=== PATIENT | male | born 1985 ===

== ENCOUNTER 2019-07-10 08:36 | Inpatient (IN) | payer OTHER ==
[2019-07-10] VITALS (17 sets, daily range): BP systolic 103–127; BP diastolic 54–81
[~2019-07-10] VITALS: Ht 190.5 cm; Wt 99.8 kg
[~2019-07-10 08:36] MED LIST: AMOXICILLIN500 MG ORAL
[2019-07-10] MEDS ORDERED: fentaNYL 100 mcg/2 mL IV ONE ×4 (09:07→15:25)
[2019-07-10] MEDS ORDERED: Midazolam 2mg/2ml Inj ONE (09:08)
[2019-07-10] MEDS ORDERED: TYLENOL PO (09:18)
[2019-07-10] MEDS ORDERED: EPINEPHrine 1mg/1ml Amp ONE (09:58)
[2019-07-10] MEDS ORDERED: Vancomycin 1gm vial IVPB ONE (09:58)
[2019-07-10] MEDS ORDERED: Bupivacaine 0.5% Inj 30 ml vial INJ ONE (09:59)
[2019-07-10] MEDS ORDERED: Heparin 5000 units/ml inj ONE (09:59)
[2019-07-10] MEDS ORDERED: Bacitracin 50000 Units Vial ONE (09:59)
--- NOTE | 2019-07-10 10:13 | Pre-Procedure Note/Attestation ---
Pre-Procedure Note/Attestation Complete Prior to Procedure Planned Procedure: bilateral Procedure Narrative: anterior and porterior decompression fusion and instrumation because of herniated disks at L4/5 and L5/S1 Attestation I attest that I discussed the nature of the procedure; its benefits; risks and complications; and alternatives (and the risks and benefits of such alternatives ), prior to the procedure, with the patient (or the patient's legal dental detail representative). I attest that, if there was a reasonable possibility of needing a blood transfusion, the patient (or the patient's legal dental detail representative) was given the [facility] standardized written summary, pursuant to the Haroldo Tami Blood Safety Act ([place] Health and Safety Code # 1645, as amended). I attest that I re-evaluated the patient just prior to the surgery and that there has been no change in the patient's H&P, except as documented below: Jeanmarie Harry MD Jul 10, 2019 10:13
[2019-07-10] MEDS ORDERED: Naloxone 0.4mg/ml Inj IVP PRN (10:15)
[2019-07-10] MEDS ORDERED: Metoclopramide 10mg/2ml Inj IVP PRN ×3 (10:15→16:30)
[2019-07-10] MEDS ORDERED: Rocuronium Bromide 50mg/5ml Inj IV ONE (10:19)
[2019-07-10] MEDS ORDERED: Succinylcholine 20mg/ml 10ml vial ONE (10:19)
[2019-07-10] MEDS ORDERED: NS Irrig 1000ml IRRIG ONE ×2 (10:29→10:40)
[2019-07-10] MEDS ORDERED: Propofol 1,000mg/ 100ml btl IV ONE (10:30)
[2019-07-10] MEDS ORDERED: Ketorolac 30mg Inj ONE (10:30)
[2019-07-10] MEDS ORDERED: Sterile Water Irrig 1000ml IRRIG ONE (10:30)
[2019-07-10] MEDS ORDERED: LR 1000ml ONE (10:30)
[2019-07-10] MEDS ORDERED: NS Irrig 1000ml ONE ×2 (10:30)
[2019-07-10] MEDS ORDERED: Thrombin 5000 units TOPIC ONE (10:52)
[2019-07-10] MEDS ORDERED: Gelfoam Size TOPIC ONE (10:52)
[2019-07-10] MEDS ORDERED: Acetaminophen (Non formulary) 100 ML IV ONE (11:30)
--- NOTE | 2019-07-10 11:32 | Anethesia Preoperative Eval ---
Anesthesia Pre-op PMH/ROS General Date of Evaluation: Jul 10, 2019 Time of Evaluation: 10:14 Anesthesiologist: Yulissa ASA Score: ASA 2 Mallampati Score Class I : Soft palate, uvula, fauces, pillars visible Class II: Soft palate, uvula, fauces visible Class III: Soft palate, base of uvula visible Class IV: Only hard plate visible Mallampati Classification: Class II Surgeon: Piero Diagnosis: Lumbar radiculopathuy Surgical Procedure: Anterior and posterior Lumbar discectomy fusion Anesthesia History: none Social History: drug use - marijuana Family History: no anesthesia problems Allergies: Coded Allergies: No Known Allergies (Unverified , 07/10/19) Medications: see eMAR Patient NPO?: Yes NPO Date: Jul 09, 2019 NPO Time: 2129 Past Medical History Cardiovascular: Denies: HTN, CAD, [place], valve dz, arrhythmia, other Pulmonary: Denies: asthma, COPD, PAULA, other Gastrointestinal/Genitourinary: Reports: GERD - mild; Denies: CRI, ESRD, other Neurologic/Psychiatric: Reports: other - chronic pain; Denies: dementia, CVA, depression/anxiety, TIA Endocrine: Denies: DM, hypothyroidism, steroids, other HEENT: Denies: cataract (L), cataract (R), glaucoma, PO[place]AY IRA (L), PO[place]AY IRA (R), other Hematology/Immune: Denies: anemia, DVT, bleeding disorder, other Musculoskeletal/Integumentary: Denies: OA, RA, DJD, DDD, edema, other PMH Narrative: as above PSxH Narrative: None Anesthesia Pre-op Phys. Exam Physician Exam Last Vital Signs Date Time Temp Pulse Resp B/P (MAP) Pulse Ox O2 Delivery O2 Flow Rate FiO2 07/10/19 09:13 Room Air 07/10/19 09:08 98.1 73 18 125/78 (94) 97 Constitutional: NAD Neurologic: CN 2-12 intact Cardiovascular: RRR, no M/R/G Respiratory: CTA Gastrointestinal: S/NT/ND Airway Exam Mallampati Score: Class II MO: full Neck: flexible ROM: full Teeth: intact Dentures: no upper, no lower Anesthesia Pre-op A/P Labs see chart Studies Pre-op Studies: EKG - NSR Risk Assessment & Plan Assessment: ASA 2 Plan: GA with Ett, supine and prone position, neuromonitoring Status Change Before Surgery: No Pre-Antibiotics Drug: Ancef 2gr, Vancomycin 1gr Given Within 1 Hr of Incision: Yes Time Given: 11:18 Rivera Duenas MD Jul 10, 2019 11:32
[2019-07-10] MEDS ORDERED: Propofol 200mg/20ml IV ONE (12:19)
[2019-07-10] MEDS ORDERED: Ketamine 500mg Inj ONE (13:13)
[2019-07-10] MEDS ORDERED: Lidocaine 1% MPF 10mg/ml 5ml ONE (13:32)
[2019-07-10] MEDS ORDERED: Lidocaine 1% Plain 30 ml INJ ONE (13:59)
[2019-07-10] MEDS ORDERED: Lidocaine 1% 10mg/ml/Epi 0.005mg/ml 30ml vial INJ ONE (14:36)
--- NOTE | 2019-07-10 16:19 | Immediate Post-Op Evaluation ---
Immediate Post-Op Evalulation Immediate Post-Op Evalulation Procedure: ALIF L4-5, L5-S1 Date of Evaluation: Jul 10, 2019 Time of Evaluation: 16:29 IV Fluids: 2000 LR Blood Products: 0 Estimated Blood Loss: 150 Urinary Output: 250 Blood Pressure Systolic: 127 Blood Pressure Diastolic: 85 Pulse Rate: 93 Respiratory Rate: 16 O2 Sat by Pulse Oximetry: 100 Temperature (Fahrenheit): 98.6 Pain Score (1-10): 3 Nausea: No Vomiting: No Complications 0 Patient Status: awake, reacts, patent, extubated, none Hydration Status: adequate Dru Grams Ancef IV Given Within 1 Hr of Incision: Yes Time Given: 10:37 Driss Huston MD Jul 10, 2019 16:19
[2019-07-10] MEDS ORDERED: LR 1000ml 1,000 ML IVLG SCH ×2 (16:21)
[2019-07-10] MEDS: fentaNYL 100 mcg/2 mL IV PRN ×2 (16:27→17:09)
[2019-07-10] MEDS ORDERED: LORazepam Inj 2mg/ml 1ml IV PRN ×2 (16:30)
[2019-07-10] MEDS ORDERED: DiphenhydrAMINE 50mg/ml Inj IVP PRN ×2 (16:30)
[2019-07-10] MEDS ORDERED: Ketorolac 30mg Inj IV PRN ×4 (16:30)
[2019-07-10] MEDS ORDERED: HYDROcodone/Acetamin 5/325 tab ORAL PRN ×2 (16:30)
[2019-07-10] MEDS ORDERED: Hydromorphone 0.5mg/0.5ml inj IVP PRN (16:30)
[2019-07-10] MEDS ORDERED: Midazolam 2mg/2ml Inj IVP PRN ×2 (16:30)
[2019-07-10] MEDS ORDERED: fentaNYL 100 mcg/2 mL IV PRN (16:30)
[2019-07-10] MEDS ORDERED: Labetalol 5mg/ml 20ml vial IV PRN ×2 (16:30)
[2019-07-10] MEDS ORDERED: HYDROcodone/Acetamin 7.5/325 tab ORAL PRN ×2 (16:30)
[2019-07-10] MEDS ORDERED: oxyCODONE HCL/Acetaminophen 5/325mg ORAL PRN ×2 (16:30)
[2019-07-10] MEDS ORDERED: Meperidine 50mg/ml Inj(FOR RIGORS ONLY) IVP PRN ×2 (16:30)
[2019-07-10] MEDS ORDERED: Atropine Sulfate 0.4mg/ml inj IVP PRN ×2 (16:30)
[2019-07-10] MEDS: Hydromorphone 0.5mg/0.5ml inj IVP PRN ×2 (16:35→17:39)
--- NOTE | 2019-07-10 16:41 | Diagnostic Imaging Report ---
Indication: Intraoperative imaging COMPARISON: None FINDINGS: 8 fluoroscopic images were obtained intraoperatively. Multiple fluoroscopic images demonstrating anterior discectomy and fusion at L4-5 and L5-S1 with the plate and several screws. Subsequent placement of a posterior fusion apparatus L4-S1 noted with fusion rods and pedicle screws. IMPRESSION: Intraoperative imaging as described above
--- NOTE | 2019-07-10 18:12 | NUR ---
NURSE NOTES: Patient arrived to unit via bed accompanied by RN. Patient is awake and oriented, patient is moaning, states his pain is "12/10." Posterior surgical dressing dry with one small stain noted, anterior dressing clean, dry, intact. Left hand IV intact, patent. SCD's in place. Per report from Maggy RN mcduffie was removed approximately 1800, patient has not voided yet, provided patient with urinal. Patient's sister at bedside, updated on plan of care. Side rails upx3, bed low and locked, call light in reach. Will medicate per order for pain.
--- NOTE | 2019-07-10 18:30 | NUR ---
NURSE NOTES: Went to reassess patient for pain and patient is now sleeping, no requests at this time.
[2019-07-10] MEDS: Docusate 100mg cap ORAL SCH (18:52)
--- NOTE | 2019-07-10 19:30 | NUR ---
HAND-OFF: Report given to Pratima SPENCER. Endorsed pain reassessment for administered dilaudid 2mg subcut.
--- NOTE | 2019-07-10 19:35 | NUR ---
NURSE NOTES: Received report from JOHANNA Regan. Patient drowsy, easily awakened, oriented. Neuro checks done. IV in LH intact and patent. Abdominal and back dressings checked, dry, both have small stains, circled. no active bleeding. No nausea/vomiting. Bed in low position, locked, side rails up x3, SCDs on. Call light within reach. Instructed on moving in bed, log rolling, request assistance as needed. Will continue to monitor.
[2019-07-10 20:31] LABS: BASOPHILS % (AUTO) 0.6 % (0.0-2.0); EOSINOPHILS % (AUTO) 0.2 % (0.0-3.0); HEMATOCRIT 39.9 % (42.0-52.0); LYMPHOCYTES % (AUTO) 14.2 % (20.0-45.0); MEAN CORPUSCULAR VOLUME 84 FL (80-99); MONOCYTES % (AUTO) 9.7 % (1.0-10.0); NEUTROPHILS % (AUTO) 75.3 % (45.0-75.0); PLATELET COUNT 242 K/UL (150-450); RED BLOOD COUNT 4.74 M/UL (4.70-6.10); RED CELL DISTRIBUTION WIDTH 9.9 % (11.6-14.8); WHITE BLOOD COUNT 15.6 K/UL (4.8-10.8)
[2019-07-10] MEDS: D5 1/2NS w/KCl 20mEq 1,000 ML IV SCH (20:41)
[2019-07-10] MEDS: ceFAZolin sod 1 GM in D5W 55 ML IV SCH (20:41)
[2019-07-10] MEDS: Vancomycin 1 GM in D5W 275 ML IVPB SCH (23:03)
--- NOTE | 2019-07-10 23:15 | Operative Note - Dictated ---
DATE OF OPERATION: 07/10/2019 PREOPERATIVE DIAGNOSES: 1. L4-5 and L5-S1 herniated nucleus pulposus. 2. L4-5 and L5-S1 internal disc derangement. 3. L4-5 and L5-S1 annular tear. 4. L4-5 and L5-S1 instability. POSTOPERATIVE DIAGNOSES: 1. L4-5 and L5-S1 herniated nucleus pulposus. 2. L4-5 and L5-S1 internal disc derangement. 3. L4-5 and L5-S1 annular tear. 4. L4-5 and L5-S1 instability. PROCEDURES: 1. L4-5 and L5-S1 bilateral lateral fusion. 2. Posterior L4-5 and L5-S1 bilateral segmental instrumentation. 3. Use of local bone graft. 4. Use of demineralized bone matrix. 5. Intraoperative use of fluoroscopy. 6. Intraoperative use of spinal cord monitoring. SURGEON: Jeanmarie Harry M.D. ANESTHESIA: General with endotracheal intubation. DESCRIPTION OF PROCEDURE: Under general anesthesia with endotracheal intubation, the patient was placed in a prone position on the operating table. Back was prepped and draped in usual manner. The C-arm was pulled back into position and the pedicles at L4 and S1 were identified bilaterally. Following this, we placed 18-gauge spinal needles towards the pedicles at L4 bilaterally. Jamshidi needles were then used under C-arm control and directed into the pedicles. Wire was passed through the Jamshidi's bilaterally. The Jamshidi was removed. Dilators were placed over the wire. The holes were tapped 5.5 outer diameter and then 6.5 outer diameter screws, 45 mm long were inserted in a standard fashion bilaterally at L4. Following this, we tested the screws on spinal cord monitoring and they were noted to be in good position. We then went down to S1, identified the pedicles at S1. Jamshidi needles were advanced into the pedicles using the modified Eloy technique. Wires were placed through the Jamshidi's. Dilators placed over the wires. The holes were tapped and then once again, 45 mm long, 6.5 outer diameter screws were used. These screws were tested bilaterally and noted to be in good positions. The rods were then passed into the screw heads. They were 90 mm rods. Locking caps were applied and then they were appropriately torqued. The facets were debrided at L4-5 and L5-S1. Local bone was passed along the lateral gutters along with demineralized bone matrix. The wound was then closed in layers using 2-0 for fascia and 4-0 for subcuticular closure. Sterile dressings were applied. The patient was then taken to the recovery room and judged to be in stable condition and neurologically unchanged. Estimated blood loss for the posterior part of the procedure was about 5 mL. All sponge and needle counts were reported as correct. There were no complications. Jeanmarie Harry MD DR: ZAIRA JOB#: [id number] CC:
--- NOTE | 2019-07-10 23:30 | Consultation ---
DATE OF CONSULTATION: PREOPERATIVE DIAGNOSIS: Left L4-5 and L5-S1 herniated nucleus pulposus. POSTOPERATIVE DIAGNOSIS: Left L4-5 and L5-S1 herniated nucleus pulposus. PROCEDURE: 1. L4-5 and L5-S1 anterior decompression. This included a complete diskectomy at both levels with decompression of spinal canal and neurologic structures. 2. Distraction arthrodesis, L4-5 and L5-S1. 3. Insertion of a PEEK cage at L4-5 and L5-S1. 4. Anterior plating, L4-5 and L5-S1. 5. Use of local bone graft. 6. Intraoperative use of fluoroscopy. 7. Use of bone graft, small bone morphogenic protein. 8. Intraoperative use of spinal cord monitoring. SURGEON: Jeanmarie Harry M.D. CO-SURGEON: Dr. Alaniz. ANESTHESIA: General endotracheal intubation. ANESTHESIOLOGIST: . DESCRIPTION OF PROCEDURE: Under general anesthesia with endotracheal intubation, the patient was placed in the prone position on the operating table. Abdomen was then prepped and draped in the usual manner. A midline incision was made. Dr. Alaniz made a retroperitoneal approach to the lumbosacral spine and exposed the L4 disk lateral to the great vessels and the L5 disk in the crotch in great vessels. I approached L4-5 first. I incised the anulus with a knife, the endplates with an endplate separator and then removed the disk with a variety of pituitary rongeur. As disk was removed back to posterior longitudinal ligament, wedge-shaped distractors were inserted. Over the interspace, posterior longitudinal ligament was taken down. The spinal canal was decompressed. The nerves were decompressed. The cauda equina was decompressed. Local bone was harvested off the endplates and pushed out laterally. Interspace measured 15 mm high. A 15 mm 15-degree angled cage was then inserted. It was packed with demineralized bone matrix and bone morphogenic protein. A plate was fixed to the anterior part of the cage. Two screws were then placed into the inferior endplate of L4 and two in the superior endplate of L5. All screws were properly locked. Hemostasis was achieved. We then went down to L5-S1 to the crotch to the great vessels. I incised the anulus with a knife, the endplates with an endplate separator, and removed the disk with a variety of pituitary graft rongeurs. A wedge-shaped distractors were inserted to open up the interspace. The posterior longitudinal ligament was taken down. Before it was taken down, it was noted to be torn as was the same at L4-5. A 45-degree Kerrison was used to take it down the rest of the way. The canal was decompressed. The disc material was removed from the canal. The neurologic structures were decompressed. A 15-degree angled 15 mm high cage was then selected. It was packed with demineralized bone matrix and bone morphogenic protein was gently tapped into position under fluoroscopic control and direct vision. A plate was fixed to the anterior part of this cage. Two screws were then placed in the inferior endplate of L5, two in the superior endplate of S1, and all screws were appropriately locked. Hemostasis was achieved. The wound was then closed in layers. Sterile dressings were applied. The patient was then flipped to the prone position for the back of the procedure. Estimated blood loss on the front was approximately 20 mL. All sponge and needle counts were recorded as correct. Jeanmarie Harry MD DR: ZAIRA JOB#: [id number] CC:
[2019-07-11 00:45] VITALS: BP 134/74
--- NOTE | 2019-07-11 01:00 | NUR ---
NURSE NOTES: Patient was given ice chips earlier, had slight nausea, no vomiting. Attempted to void x2. Bladder scan done: [address] Loza for orders. Will continue to monitor.
--- NOTE | 2019-07-11 02:17 | NUR ---
NURSE NOTES: Contacted Dr Loza for further orders regarding no voids after reta stanley Will continue to monitor. Addendum: 07/11/19 at 0305 by Pratima Mendez RN Placed call, left message.
--- NOTE | 2019-07-11 02:55 | NUR ---
NURSE NOTES: Contacted physician regarding inability to void, left message. Patient sleeping. No distress noted.
[2019-07-11] MEDS: ceFAZolin sod 1 GM in D5W 55 ML IV SCH ×2 (03:44→12:05)
[2019-07-11 04:00] VITALS: BP 121/70
--- NOTE | 2019-07-11 04:16 | NUR ---
NURSE NOTES: Followed protocol, contacted nursing reinforced steel placing supervisor. Awaiting call back from physician.
--- NOTE | 2019-07-11 04:40 | NUR ---
NURSE NOTES: Spoke with Dr Loza, obtained order for straight cath as needed.
[2019-07-11] MEDS: D5 1/2NS w/KCl 20mEq 1,000 ML IV SCH ×4 (04:45→22:00)
--- NOTE | 2019-07-11 04:45 | NUR ---
NURSE NOTES: Patient was able to void prior to straight catheterization. Will continue to closely monitor. Sister at bedside, very supportive of care.
--- NOTE | 2019-07-11 07:35 | NUR ---
HAND-OFF: Report given to JOHANNA Regan.
[2019-07-11 07:37] LABS: ANION GAP 8 mmol/L (5-15); BLOOD UREA NITROGEN 11 mg/dL (7-18); CALCIUM 8.3 MG/DL (8.5-10.1); CARBON DIOXIDE 27 MMOL/L (21-32); CHLORIDE 103 MMOL/L (98-107); CREATININE 0.8 MG/DL (0.55-1.30); POTASSIUM 3.5 MMOL/L (3.5-5.1); SODIUM 138 MMOL/L (136-145)
[2019-07-11 08:00] VITALS: BP 103/66
--- NOTE | 2019-07-11 08:21 | NUR ---
NURSE NOTES: Received report from Pratima SPENCER. Patient is asleep but arousable to voice during rounds, no acute distress noted but patient is reporting that he is in "a lot of pain", pain medication is not due yet, educated patient that I will medicate for pain per order when due, patient is in agreement. Posterior surgical dressing dry with two small stains noted, both circled, anterior dressing clean and dry. IVF running per order. Patient is voiding without difficulty on his own now, 450mL of urine was in urinal during rounds that patient voided on his own. Patient updated on plan of care. Safety measures in place. Side rails upx3, bed low and locked, call light within reach.
--- NOTE | 2019-07-11 08:32 | NUR ---
NURSE NOTES: Went to check on patient to see if he still needs pain medication and patient is sleeping now, appears comfortable, in no distress, RR even and unlabored.
--- NOTE | 2019-07-11 09:03 | Brief Operative Note ---
Immediate Post Operative Note Operative Note Pre-op Diagnosis: L4?5 L5/S1 herniated disk with internal disk disrangment Procedure: L4/5 L5/S1 anterior and posterior decompression fusion and instramentation Post-op Diagnosis: same Post-op Diagnosis: same as pre-op Anesthesia: general Specimen: yes Complications: none Condition: stable Fluids: 2 liters Estimated Blood Loss: minimal Implant(s) used?: Yes Jeanmarie Harry MD Jul 11, 2019 09:03
--- NOTE | 2019-07-11 09:04 | Orthopedic Spine Progress Note ---
Ortho Spine - Progress Note Subjective Symptoms: c/o post-op back pain, improved - as compared to pre-op Objective Vital Signs: Last 24 Hour Vital Signs Date Time Temp Pulse Resp B/P (MAP) Pulse Ox O2 Delivery O2 Flow Rate FiO2 07/11/19 08:00 99.3 100 18 103/66 (78) 99 07/11/19 04:00 98.4 99 16 121/70 (87) 96 07/11/19 00:45 98.2 98 18 134/74 (94) 96 07/10/19 22:30 92 20 99 07/10/19 21:15 98.2 98 17 113/70 (84) 98 07/10/19 21:00 Nasal Cannula 2.0 07/10/19 20:15 98.6 98 18 113/71 (85) 98 07/10/19 19:45 97.9 93 17 110/67 (81) 99 07/10/19 19:12 88 16 113/71 (85) 100 07/10/19 18:42 81 16 110/64 (79) 99 07/10/19 18:12 97.6 88 16 107/62 (77) 100 07/10/19 18:09 97.2 07/10/19 18:00 97.2 74 16 114/66 99 Nasal Cannula 3 07/10/19 17:45 72 18 108/63 99 Nasal Cannula 3 07/10/19 17:30 86 18 117/76 99 Nasal Cannula 3 07/10/19 17:15 84 15 118/74 99 Nasal Cannula 3 07/10/19 17:00 95 24 119/81 99 Nasal Cannula 3 07/10/19 16:57 98.0 07/10/19 16:56 98.0 07/10/19 16:45 80 14 103/54 100 Nasal Cannula 3 07/10/19 16:35 93 22 123/73 100 Nasal Cannula 3 07/10/19 16:25 96 20 114/65 100 Simple Mask 6 07/10/19 16:20 96 17 116/68 100 Simple Mask 6 07/10/19 16:19 93 16 100 07/10/19 16:18 98.6 105 12 127/54 100 Simple Mask 6 07/10/19 09:13 Room Air 07/10/19 09:08 98.1 73 18 125/78 (94) 97 I&O: Intake and Output 10/28/19 10/29/19 18:59 06:59 Intake Total 2250 ml 1125 ml Output Total 470 ml 300 ml Balance 1780 ml 825 ml Intake IV Total 2250 ml 1125 ml Output Urine Total 320 ml 300 ml Estimated Blood Loss 150 ml # Voids 1 1 Drains: none Neuro Status: normal Assessment Post-op Diagnosis: same Procedure Performed: L4/5 L5/S1 anterior and posterior decompression fusion and instramentation Plan Plan: PT, continue antibiotics, discharge plan Jeanmarie Harry MD Jul 11, 2019 09:04
[2019-07-11] MEDS: Docusate 100mg cap ORAL SCH ×2 (09:08→17:51)
--- NOTE | 2019-07-11 09:18 | General Progress Note ---
Assessment/Plan Assessment/Plan: L4/5 L5/S1 herniated disk with internal disk disrangment L4/5 L5/S1 anterior and posterior decompression fusion and instramentation back pain PLAN 1. incentive spirometry 2. advance diet as able 3. PT evaluation and therapy 4. Hydration 5. Pain management 6. discharge once stable with outpatient follow up Subjective Allergies: Coded Allergies: No Known Allergies (Unverified , 07/10/19) Subjective significant pain difficulty urinating Objective Last 24 Hour Vital Signs Date Time Temp Pulse Resp B/P (MAP) Pulse Ox O2 Delivery O2 Flow Rate FiO2 07/11/19 08:00 99.3 100 18 103/66 (78) 99 07/11/19 04:00 98.4 99 16 121/70 (87) 96 07/11/19 00:45 98.2 98 18 134/74 (94) 96 07/10/19 22:30 92 20 99 07/10/19 21:15 98.2 98 17 113/70 (84) 98 07/10/19 21:00 Nasal Cannula 2.0 07/10/19 20:15 98.6 98 18 113/71 (85) 98 07/10/19 19:45 97.9 93 17 110/67 (81) 99 07/10/19 19:12 88 16 113/71 (85) 100 07/10/19 18:42 81 16 110/64 (79) 99 07/10/19 18:12 97.6 88 16 107/62 (77) 100 07/10/19 18:09 97.2 07/10/19 18:00 97.2 74 16 114/66 99 Nasal Cannula 3 07/10/19 17:45 72 18 108/63 99 Nasal Cannula 3 07/10/19 17:30 86 18 117/76 99 Nasal Cannula 3 07/10/19 17:15 84 15 118/74 99 Nasal Cannula 3 07/10/19 17:00 95 24 119/81 99 Nasal Cannula 3 07/10/19 16:57 98.0 07/10/19 16:56 98.0 07/10/19 16:45 80 14 103/54 100 Nasal Cannula 3 07/10/19 16:35 93 22 123/73 100 Nasal Cannula 3 07/10/19 16:25 96 20 114/65 100 Simple Mask 6 07/10/19 16:20 96 17 116/68 100 Simple Mask 6 07/10/19 16:19 93 16 100 07/10/19 16:18 98.6 105 12 127/54 100 Simple Mask 6 Intake and Output 07/10/19 07/11/19 18:59 06:59 Intake Total 2250 ml 1125 ml Output Total 470 ml 300 ml Balance 1780 ml 825 ml Intake IV Total 2250 ml 1125 ml Output Urine Total 320 ml 300 ml Estimated Blood Loss 150 ml # Voids 1 1 Laboratory Tests 07/10/19 19:30: White Blood Count 15.6H, Red Blood Count 4.74, Hemoglobin 14.0L, Hematocrit 39.9L, Mean Corpuscular Volume 84, Mean Corpuscular Hemoglobin 29.6, Mean Corpuscular Hemoglobin Concent 35.2, Red Cell Distribution Width 9.9L, Platelet Count 242, Mean Platelet Volume 6.7, Neutrophils (%) (Auto) 75.3H, Lymphocytes ( %) (Auto) 14.2L, Monocytes (%) (Auto) 9.7, Eosinophils (%) (Auto) 0.2, Basophils (%) (Auto) 0.6 07/11/19 05:55: Sodium Level 138, Potassium Level 3.5, Chloride Level 103, Carbon Dioxide Level 27, Anion Gap 8, Blood Urea Nitrogen 11, Creatinine 0.8, Estimat Glomerular Filtration Rate > 60, Glucose Level 126H, Calcium Level 8.3L Height (Feet): 6 Height (Inches): 3.00 Weight (Pounds): 220 Objective WDWN NAD clear breath sounds bilaterally without rhonchi or wheeze [id number] without MRG NABS nontender no HSM no CCE nonfocal Aung Loza MD Jul 11, 2019 09:18
--- NOTE | 2019-07-11 09:50 | NUR ---
PT EVALUATION NOTE Patient seen for initial evaluation, see complete evaluation for details. Patient presents with impaired functional mobility and pain s/p lumbar surgery. Patient educated in back precautions and log roll technique for in/OOB. Patient requires min assist for bed mobility and CGA for transfers with FWW. Patient ambulated 15 ft with FWW and CGA, distance limited by emesis and feeling ill. Patient will benefit from skilled inpatient PT intervention to improve functional mobility while maintaining back precautions. Anticipate discharge home once medically cleared by MD. Patient may need FWW for home use depending on patient's progress. Addendum: 07/11/19 at 1250 by EDER RUBIN PT Amended: Links added.
--- NOTE | 2019-07-11 10:07 | 48 Hour Post Anesthesia Eval ---
Post Anesthesia Evaluation Procedure: ALIF L4-5, L5-S1 Date of Evaluation: Jul 11, 2019 Time of Evaluation: 10:11 Blood Pressure Systolic: 103 0: 86 Pulse Rate: 100 Respiratory Rate: 18 Temperature (Fahrenheit): 99.3 O2 Sat by Pulse Oximetry: 99 Airway: patent Nausea: No Vomiting: No Pain Intensity: 3 Hydration Status: adequate Cardiopulmonary Status: Stable Mental Status/LOC: patient returned to baseline Follow-up Care/Observations: 0 Post-Anesthesia Complications: 0 Follow-up care needed: ready to discharge Driss Huston MD Jul 11, 2019 10:07
[2019-07-11] MEDS: Vancomycin 1 GM in D5W 275 ML IVPB SCH (11:06)
[2019-07-11 12:00] VITALS: BP 132/89
[2019-07-11 16:00] VITALS: BP 129/74
[2019-07-11] MEDS ORDERED: Tubing IV Secondary IV ONE (17:40)
--- NOTE | 2019-07-11 19:42 | NUR ---
HAND-OFF: Report given to Pratima SPENCER.
--- NOTE | 2019-07-11 19:45 | NUR ---
NURSE NOTES: Report received from JOHANNA Regan. Patient was sleeping. Bed in low position, side rails up x3, call light within reach. IVF running well in , no distress noted at this time. Has been using incentive spirometer. SCDs off, patient refuses SCDs for now. Reinforced log roll method for repositioning and encouraged to call for assistance as needed. Discussed plan with patient to ambulate after next pain medication dose, patient verbalizes understanding. Will continue to monitor.
[2019-07-11 20:00] VITALS: BP 109/63
--- NOTE | 2019-07-11 23:30 | NUR ---
NURSE NOTES: Ambulated in hallway with assistance for approx 7-8 minutes. Tolerated fairly well. + flatus, diet advanced to clear liquid, no nausea, no vomiting. Will continue to monitor.
[2019-07-12] VITALS: BP 128/76
[2019-07-12 04:00] VITALS: BP 98/68
[2019-07-12] MEDS: D5 1/2NS w/KCl 20mEq 1,000 ML IV SCH (06:23)
[2019-07-12 07:12] LABS: BASOPHILS % (AUTO) 0.5 % (0.0-2.0); EOSINOPHILS % (AUTO) 1.1 % (0.0-3.0); HEMATOCRIT 36.5 % (42.0-52.0); LYMPHOCYTES % (AUTO) 15.3 % (20.0-45.0); MEAN CORPUSCULAR VOLUME 84 FL (80-99); MONOCYTES % (AUTO) 13.9 % (1.0-10.0); NEUTROPHILS % (AUTO) 69.2 % (45.0-75.0); PLATELET COUNT 204 K/UL (150-450); RED BLOOD COUNT 4.34 M/UL (4.70-6.10); RED CELL DISTRIBUTION WIDTH 10.6 % (11.6-14.8); WHITE BLOOD COUNT 11.2 K/UL (4.8-10.8)
--- NOTE | 2019-07-12 07:15 | NUR ---
HAND-OFF: Report given to JOHANNA Regan.
--- NOTE | 2019-07-12 07:30 | NUR ---
NURSE NOTES: Received report from Pratima SPENCER. Patient is asleep during rounds, no acute distress noted, RR even and unlabored. IV intact, patent, running IVF per order. Per report patient was advanced to clear liquid diet and is tolerating well so far. Safety measures in place. Side rails upx3, bed low and locked, call light within reach.
[2019-07-12 08:00] VITALS: BP 102/64
--- NOTE | 2019-07-12 09:05 | NUR ---
NURSE NOTES: Received order from Dr. Loza for patient's pain medication. MD ordered to change dilaudid subq to breakthrough and add [place] 10 q4 hrs prn severe pain, orders read back and entered. also gave order to provide patient with front wheel walker upon discharge if recommended by PT. Will carry out as ordered.
[2019-07-12] MEDS ORDERED: HYDROcodone/Acetamin 10/325 tab ORAL PRN (09:15)
[2019-07-12] MEDS: Docusate 100mg cap ORAL SCH (10:06)
[2019-07-12] MEDS ORDERED: NORCO 10-325 T1 EACH ORAL (10:44)
[2019-07-12 12:00] VITALS: BP 111/65
--- NOTE | 2019-07-12 12:17 | NUR ---
NURSE NOTES: Received call from Dr. Harry. gave discharge order. Order entered, will carry out.
--- NOTE | 2019-07-12 13:30 | NUR ---
NURSE NOTES: Patient discharged without distress. Patient provided with discharge education/handouts. Reviewed education with patient and patient verbalized understanding of provided teaching. Patient provided with Rx from Dr. Loza. IV removed intact. Patient provided with front wheel walker per order. Patient escorted to private vehicle via wheelchair by RN and CUPOLA TAPPER, accompanied by patient's sister Caitlin.
--- NOTE | 2019-07-12 22:16 | Operative Note - Dictated ---
DATE OF OPERATION: 07/10/2019 PREOPERATIVE DIAGNOSIS: Left L4-L5 and L5-S1 herniated nucleus pulposus. POSTOPERATIVE DIAGNOSIS: Left L4-L5 and L5-S1 herniated nucleus pulposus. PROCEDURE: 1. L4-L5 and L5-S1 anterior decompression including a complete diskectomy at both levels of L4-L5 and L5-S1 and decompression of the spinal canal and neurological structures. 2. Distraction arthrodesis, L4-L5 and L5-S1. 3. Insertion of a PEEK cage at L4-L5 and L5-S1. 4. Anterior plating L4-L5 and L5-S1. 5. Use of local bone graft. 6. Intraoperative fluoroscopy. 7. Ligation of the left iliolumbar vein. 8. Ligation of the middle sacral artery and vein. 9. Mobilization of the aorta and vena cava to the right. 10. Mobilization of the left common iliac artery and vein to the right. SURGEON: Flavio Alaniz M.D. CO-SURGEON: Jeanmarie Harry M.D. ESTIMATED BLOOD LOSS: 50 mL. ANESTHESIA: General. OPERATIVE NOTE: Risks, benefits, complications, alternative therapies, high-risk nature of the operation fully explained to the patient. Consent obtained. Risks and benefits have been explained to the patient included, but not limited to bleeding, infection, damage to the bowel, damage to ureter, wound infection, wound dehiscence, DVT, PE, loss of limb, loss of life, high-risk nature of the operation fully explained and stressed to the patient. All questions answered. The possibility of retrograde ejaculation, sexual dysfunction fully explained to the patient. Consent obtained. OPERATIVE TECHNIQUE: The patient was placed in supine position, prepped and draped in usual sterile fashion. Time-out was called. I made a 10 cm incision midline from the umbilicus on to the xiphoid process. Incision was carried down to the subcutaneous tissue, which was then opened using electrocautery. Left anterior rectus sheath was opened slightly to the left of the midline. Left rectus muscle was mobilized superiorly and inferiorly. Posterior rectus sheath was cut inferiorly about 5 cm. Bookwalter retractor was placed retracting the bowel contents to the right, left rectus muscle to the left. I identified the left common iliac artery and vein, vena cava, aorta, ureter, and psoas muscle, sympathetic chain, they were all preserved. The left common iliac artery and vein, external iliac artery and vein were dissected and mobilized using a peanut dissector. The left iliolumbar veins were ligated using 2-0 silk suture and titanium clips. Middle sacral vessels were ligated using titanium clips. Mobilization of the aorta and vena cava and iliac vein and artery were started from the left to right. Dissection for L4-L5 was done by mobilizing the vena cava and aorta to the right and iliac vessels to the right and exposure for L5-S1 was between the right and left common iliac artery and vein. We proceeded with a diskectomy and placement of the placement of new cage. Please refer to Dr. Harry's dictation for the details of that operation. After all the x-rays were satisfactory read by Dr. Harry, needle count and sponge count was correct. The wound was irrigated using antibiotic solution. There was good pulsation in the common external iliac artery. No signs of any bleeding. The posterior rectus sheath was closed with 0 Vicryl suture in a running fashion. Anterior rectus sheath was irrigated and closed in 2 layers of 2-0 Vicryl suture for the subcutaneous and Steri-Strips for the skin. The patient tolerated the procedure well. Flavio Alaniz MD DR: SARAHY JOB#: [id number] CC:
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
--- NOTE | 2019-07-12 22:16 | Operative Note - Dictated ---
DATE OF OPERATION: 07/10/2019 PREOPERATIVE DIAGNOSES: 1. L4-L5 and L5-S1 herniated nucleus pulposus. 2. L4-L5 and L5-S1 internal disc derangement. 3. L4-L5 and L5-S1 annular tear. 4. L4-5 and L5-S1 instability. POSTOPERATIVE DIAGNOSES: 1. L4-L5 and L5-S1 herniated nucleus pulposus. 2. L4-L5 and L5-S1 internal disc derangement. 3. L4-L5 and L5-S1 annular tear. 4. L4-5 and L5-S1 instability. PROCEDURE: 1. L4-L5 and L5-S1 bilateral lumbosacral fusion with retroperitoneal exposure of the lumbosacral spine. 2. Use of local bone graft. 3. Use of demineralized bone matrix. 4. Fluoroscopy. 5. Ligation of the left iliolumbar vein. 6. Ligation of the middle sacral artery and vein. 7. Mobilization of the aorta and iliac arteries to the right. 8. Mobilization of the vena cava and left common iliac vein to the right. 9. L4-L5 and L5-S1 anterior retroperitoneal exposure interbody fusion lumbosacral spine. SURGEON: Flavio Alaniz M.D. CO-SURGEON: Jeanmarie Harry M.D. ANESTHESIA: General. ESTIMATED BLOOD LOSS: 60 mL. OPERATIVE NOTE: Risks, benefits, complications, alternative therapies explained to the patient. Consent obtained. Risks and benefits were explained to the patient included, but not limited to bleeding, infection, damage to bowel, damage to ureter, wound infection, wound dehiscence, DVT, PE, loss of limb, loss of life, sexual dysfunction, erectile dysfunction, retrograde ejaculation, need for further surgery. Fully explained to the patient high-risk nature of the operation. Fully explained and stressed to the patient. All questions answered. The patient was prepped and draped in usual sterile fashion. Intubated. Antibiotics were given. Time-out was called and I started. I made a 10 cm incision midline from the umbilicus down to symphysis pubis. Incision was taken down to subcutaneous tissue, which was then opened using electrocautery. The left anterior rectus sheath was opened in the direction of the wound slightly to the left of the midline. Incision was taken down. The left rectus muscle was mobilized superiorly and inferiorly. The posterior rectus sheath was opened superiorly about 2 cm. At this time, I gained access into the retroperitoneal cavity. Bookwalter retractor was placed retracting the bowel contents to the right, left rectus muscle to the left. I identified the ureter. Left common iliac artery and vein, left external iliac artery and vein, vena cava, aorta, psoas muscle were all preserved. Dissection of the left common iliac artery and vein was carried out using a peanut dissector. There were 2 left iliolumbar veins, which were ligated using 2-0 silk ties and titanium clips. The left segmental vessels on the lower segmental vessels, artery, and vein was ligated using titanium clips. The middle sacral vessels were ligated using titanium clips. The aorta and vena cava were mobilized to the right side, exposing the L4-L5 disc space. The right and left common iliac artery and vein were also mobilized laterally, exposing the L5-S1 disc space. We proceeded to do a diskectomy and placement of a new cage. Please refer to Dr. Harry's dictation for the details of that operation. After all the x-rays were satisfactory read by Dr. Harry, needle count and sponge count was correct. The wound was irrigated using antibiotic solution. There was good pulsation in the left common and external iliac artery and a good pulsation picked up by the pulse ox on the left toes. Posterior rectus sheath was closed using 0 Vicryl suture in a running fashion. Anterior rectus sheath was closed using #1 Vicryl suture in a running fashion with interrupted sutures in the middle. The wound was irrigated again and closed in 2 layers of 2-0 Vicryl suture for the subcutaneous, Steri-Strips for the skin. The patient tolerated procedure well. Flavio Alaniz MD DR: SARAHY JOB#: [id number] CC:
--- NOTE | 2019-07-13 07:45 | Discharge Summary ---
Discharge Summary Hospital Course Date of Admission Jul 10, 2019 at 08:36 Date of Discharge Jul 12, 2019 at 13:15 Admitting Diagnosis L4-5, L5-S1 herniated disk with internal disk derangement Reason for Hospitalization: elective surgery HPI Driss Mendez is a 33 year old male who was admitted on Jul 10, 2019 at 08:36 for Spondylolisthesis, Lumbosacral Region Consultations Dr Comer - thoracic surgeon Dr Loza - IM Procedures s/p 07/10/[address] Harry spine surgery and Dr Comer -thoracic surgeon 1. L4-5 and L5-S1 bilateral lateral fusion. 2. Posterior L4-5 and L5-S1 bilateral segmental instrumentation. 3. Use of local bone graft. 4. Use of demineralized bone matrix. 5. Intraoperative use of fluoroscopy. 6. Intraoperative use of spinal cord monitoring. Hospital Course status post surgery course of recovery uneventful initially IV fluids s/p perioperative antibiotics neurovascular status closely monitored, remained stable incision clean , dry, and intact with dressing pain management was addressed , pain was controlled remained hemodynamically stable ambulated with PT fall precautions maintained; safe for ambulation DVT prophylaxis with SCD provided use of incentive spirometry was encouraged while in the bed diet slowly advanced as tolerated. tolerated diet , IV fluids discontinued voided freely bowel regimen instituted patient was stable for discharge discharge instructions provided follow up with surgeon in the office as advised by surgeon FINAL DIAGNOSES 1. L4-5 and L5-S1 herniated nucleus pulposus. 2. L4-5 and L5-S1 internal disc derangement. 3. L4-5 and L5-S1 annular tear. 4. L4-5 and L5-S1 instability. 5. s/p L4-5 L5/--S1 anterior and posterior decompression fusion and instrumentation Discharge Medications Continued Medications: Hydrocodone Bit/Acetaminophen 10-325* ([place] 10-325*) 1 Each Tablet 1 TAB ORAL Q4H PRN for For Pain, #30 TAB 0 Refills (This prescription has been renewed) PRN PAIN Discharge Condition Upon Discharge: stable Discharge Disposition Patient was discharged to Home () Discharge Instructions Discharge Instructions Special Instructions I have been assigned to complete a D/C Summary on this account. I was not involved in the patient management Ailin Perez NP Jul 13, 2019 07:45
--- NOTE | 2019-07-13 08:28 | General Progress Note ---
Assessment/Plan Assessment/Plan: L4/5 L5/S1 herniated disk with internal disk disrangment L4/5 L5/S1 anterior and posterior decompression fusion and instramentation back pain PLAN 1. incentive spirometry 2. advance diet as able 3. PT evaluation and therapy 4. Hydration 5. Pain management 6. discharge home; rx given Subjective Date patient seen: Jul 12, 2019 Allergies: Coded Allergies: No Known Allergies (Unverified , 07/10/19) Subjective improved late entry Objective Last 24 Hour Vital Signs Date Time Temp Pulse Resp B/P (MAP) Pulse Ox O2 Delivery O2 Flow Rate FiO2 07/12/19 12:00 98.5 95 16 111/65 (80) 95 07/12/19 09:00 Room Air Intake and Output 07/12/19 07/13/19 19:00 07:00 Intake Total 1325 ml Balance 1325 ml Intake Oral 700 ml IV Total 625 ml # Voids 3 Height (Feet): 6 Height (Inches): 3.00 Weight (Pounds): 220 Objective WDWN NAD clear breath sounds bilaterally without rhonchi or wheeze [id number] without MRG NABS nontender no HSM no CCE nonfocal Aung Loza MD Jul 13, 2019 08:28
== END 2019-07-12 13:15 | disposition home or self-care (01) | DRG 455 ==
LOC: SDSOVERFLO 08:36 → 3E 18:13
PROC: 3E0U0GB Introduction of Recombinant Bone Morphogenetic Protein into Joints, Open Approach (ICD-10-PCS; principal; 2019-07-10 10:30)
PROC: 0SG3071 Fusion of Lumbosacral Joint with Autologous Tissue Substitute, Posterior Approach, Posterior Column, Open Approach (ICD-10-PCS; principal; 2019-07-10 10:30)
PROC: 0SG30A0 Fusion of Lumbosacral Joint with Interbody Fusion Device, Anterior Approach, Anterior Column, Open Approach (ICD-10-PCS; principal; 2019-07-10 10:30)
PROC: 0SG00A0 Fusion of Lumbar Vertebral Joint with Interbody Fusion Device, Anterior Approach, Anterior Column, Open Approach (ICD-10-PCS; principal; 2019-07-10 10:30)
PROC: 0SG0071 Fusion of Lumbar Vertebral Joint with Autologous Tissue Substitute, Posterior Approach, Posterior Column, Open Approach (ICD-10-PCS; principal; 2019-07-10 10:30)
PROC: 0ST20ZZ Resection of Lumbar Vertebral Disc, Open Approach (ICD-10-PCS; principal; 2019-07-10 10:30)
PROC: 0ST40ZZ Resection of Lumbosacral Disc, Open Approach (ICD-10-PCS; principal; 2019-07-10 10:30)
DX: M51.16 Intervertebral disc disorders with radiculopathy, lumbar region (principal); M51.17 Intervertebral disc disorders with radiculopathy, lumbosacral region; E66.3 Overweight; M53.2X6 Spinal instabilities, lumbar region; M53.2X7 Spinal instabilities, lumbosacral region
CPT/HCPCS: 36415; 72020; 76000; 80048; 85025; 86850; 86900; 86901; 86920; 87081; 94003; 94150; J2250; J2405